=== PATIENT | female | born 1965 | race Hispanic/Latino ===

== ENCOUNTER 2017-12-06 23:35 | Emergency (ER) | payer OTHER ==
[2017-12-07] MEDS ORDERED: TETRACAINE HCL 0.5% 4 ML OPHTH SOLN ONE (00:01)
== END 2017-12-07 00:20 | disposition home or self-care (01) ==
LOC: EDH 23:35
DX: H57.12 Ocular pain, left eye (principal); E11.39 Type 2 diabetes mellitus with other diabetic ophthalmic complication; H42 Glaucoma in diseases classified elsewhere; Z98.890 Other specified postprocedural states
CPT/HCPCS: 99282

== ENCOUNTER 2022-01-05 22:05 | Emergency (ER) | payer OTHER ==
[~2022-01-05] VITALS: Ht 149.9 cm; Wt 69.4 kg
[2022-01-05] MEDS ORDERED: VANCOMYCIN 1G VIAL IVPB ONE (23:00)
[2022-01-05] MEDS ORDERED: MORPHINE 4 MG SYG IVP ONE (23:00)
[2022-01-05] MEDS ORDERED: ONDANSETRON 4MG INJ IVP ONE (23:00)
[2022-01-05] MEDS ORDERED: 0.9%NACL 1000ML 1,000 ML IV ONE (23:00)
[2022-01-05] MEDS ORDERED: TETANUS/DIPHTHERIA TOXOID [ADULT] 0.5 ML VIAL IM ONE (23:00)
[2022-01-05] MEDS ORDERED: ZOSYN 3.375GM +NS 50ML IV ONE (23:00)
[2022-01-05 23:10] VITALS: BP 189/80
[2022-01-05 23:36] LABS: BASOPHILS % (AUTO) 0.4 % (0.0-5.0); EOSINOPHILS % (AUTO) 2.7 % (0.0-8.0); HEMATOCRIT 35.5 % (36-48); LYMPHOCYTES % (AUTO) 44.9 % (21.0-51.0); MEAN CORPUSCULAR HEMOGLOBIN 30.4 pg (27.0-33.0); MEAN CORPUSCULAR HGB CONC 35.8 g/dL (32.0-36.0); MEAN CORPUSCULAR VOLUME 84.9 fL (79-99); MONOCYTES % (AUTO) 6.7 % (3.0-13.0); NEUTROPHILS % (AUTO) 45.1 % (40.0-77.0); PLATELET COUNT (AUTO) 339 K/uL (130-400); RED BLOOD CELL COUNT(AUTO) 4.18 MIL/uL (4.00-5.50); RED CELL DISTRIBUTION WIDTH 11.3 % (11.0-15.5); WHITE BLOOD COUNT (AUTO) 8.6 K/uL (4.8-10.8)
[2022-01-05 23:59] LABS: ALBUMIN 2.9 g/dL (3.5-5.0); CREATININE 0.9 mg/dL (0.5-1.5); TOTAL PROTEIN, SERUM 7.9 g/dL (6.0-8.3)
[2022-01-06] MEDS ORDERED: BACITRACIN 1 EACH PACKET TP ONE ×2 (00:09→00:30)
== END 2022-01-06 01:03 | disposition home or self-care (01) ==
LOC: EDH 22:05
DX: S91.331A Puncture wound without foreign body, right foot, initial encounter (principal); T25.221A Burn of second degree of right foot, initial encounter; L03.115 Cellulitis of right lower limb; E11.9 Type 2 diabetes mellitus without complications; Z98.890 Other specified postprocedural states; W22.8XXA Striking against or struck by other objects, initial encounter; Y93.89 Activity, other specified; Y92.89 Other specified places as the place of occurrence of the external cause; Y99.8 Other external cause status
CPT/HCPCS: 99284; 96365; 96375; 80053; 85025; 85651; 87040 ×2; 83605; 82010; 36415; 90714; 73620; 90471; J7030; J2405; J2270; J2543